=== PATIENT | female | born 2000 | race African-American/Black ===

== ENCOUNTER 2021-02-02 06:31 | Inpatient (IN) | payer OTHER ==
[2021-02-02 07:41] VITALS: BMI 28.3
[2021-02-02] MEDS ORDERED: morphine SULFATE/PF 0.5 MG/ML (2cc Syringe - QUVA) ONE (07:57)
[2021-02-02] MEDS ORDERED: PHENYLEPHRINE HCL 10 MG/1 ML SINGLE DOSE VIAL ONE (07:57)
[2021-02-02] MEDS ORDERED: ONDANSETRON 4 MG/2 ML VIAL IVPUSH PRN (08:01)
[2021-02-02] MEDS ORDERED: OXYTOCIN 20 UNITS in 0.9% NS 20 UNIT/1,000 ML INFUS.BAG IV ONE ×2 (08:01→10:32)
[2021-02-02] MEDS ORDERED: CITRIC ACID/SODIUM CITRATE 30 ML UNIT-DOSE CUP PO ONE (08:24)
[2021-02-02] MEDS ORDERED: ELECTROLYTE-148 SOLN 500 ML IV ONE (08:25)
[2021-02-02] MEDS ORDERED: ceFAZolin SODIUM 1 GM VIAL ONE (08:26)
[2021-02-02] MEDS ORDERED: ELECTROLYTE-148 SOLN 1,000 ML IV SCH (08:30)
[2021-02-02 08:39] LABS: URINE AMPHETAMINES NEGATIVE (NEGATIVE); URINE BARBITURATES NEGATIVE (NEGATIVE)
[2021-02-02 08:40] LABS: COCAINE, UR NEGATIVE (NEGATIVE); METHADONE, UR NEGATIVE (NEGATIVE); OPIATES, URI NEGATIVE (NEGATIVE); PHENCYCLIDINE,URINE NEGATIVE (NEGATIVE); URINE BENZODIAZEPINES NEGATIVE (NEGATIVE)
[2021-02-02] MEDS ORDERED: OXYTOCIN 10 UNITS/ML VIAL ONE (09:17)
[2021-02-02] MEDS ORDERED: METHYLERGONOVINE MALEATE 0.2 MG/1 ML AMP IM PRN (09:22)
[2021-02-02] MEDS ORDERED: SENNOSIDES/DOCUSATE COMBO (SENNA PLUS) TABLET (UD) PO PRN (09:22)
[2021-02-02] MEDS ORDERED: oxyCODONE HCL 5 MG TABLET PO PRN (09:22)
[2021-02-02] MEDS ORDERED: OXYTOCIN 20 UNITS in 0.9% NS 20 UNIT/1,000 ML INFUS.BAG IV SCH (09:30)
[2021-02-02] MEDS: FERROUS SO4 325 MG TABLET (FP) PO SCH ×2 (10:45→22:31)
[2021-02-02] MEDS: PRENATAL VITAMINS W/ FOLIC ACID TABLET (FP) PO SCH (10:46)
[2021-02-02] MEDS ORDERED: diphenhydrAMINE HCL 25 MG CAPSULE (FP) PO PRN (10:57)
[2021-02-02] MEDS: LORATADINE 10 MG TABLET PO SCH (12:53)
[2021-02-02] MEDS: IBUPROFEN 800 MG/8 ML IJ IVPB PRN (16:55)
[2021-02-03] MEDS: IBUPROFEN 800 MG/8 ML IJ IVPB PRN (01:26)
[2021-02-03 07:35] LABS: BASO % 0.4 % (0-2.0); EOS % 1.2 % (0-4.5); HEMATOCRIT 30.2 % (32.4-45.2); HEMOGLOBIN 10.3 GM/dL (10.7-15.3); LYMPH % 6.5 % (8-40); MCH 30.7 pg (25.7-33.7); MEAN CELL VOLUME 90.5 fl (80-96); MEAN PLT VOLUME 8.7 fl (7.5-11.1); MONO % 8.1 % (3.8-10.2); NEUT % 83.8 % (42.8-82.8); PLATELET COUNT 191 10^3/uL (134-434); RBC 3.34 M/mm3 (3.60-5.2); RDW 14.7 % (11.6-15.6); WHITE BLOOD COUNT 13.3 K/mm3 (4.0-10.0)
[2021-02-03] MEDS: IBUPROFEN 600 MG TABLET (FP) PO PRN ×3 (08:18→23:28)
[2021-02-03] MEDS: ACETAMINOPHEN 325 MG TABLET (FP) PO PRN ×3 (08:18→23:27)
[2021-02-03] MEDS: SIMETHICONE 80 MG TAB.CHEW (FP) PO PRN ×3 (08:18→23:29)
[2021-02-03] MEDS: PRENATAL VITAMINS W/ FOLIC ACID TABLET (FP) PO SCH (09:14)
[2021-02-03] MEDS: FERROUS SO4 325 MG TABLET (FP) PO SCH ×2 (09:14→22:49)
[2021-02-03] MEDS: LORATADINE 10 MG TABLET PO SCH (09:17)
[2021-02-03] MEDS ORDERED: BISACODYL 10 MG SUPP.RECT RC PRN (09:22)
[2021-02-04] MEDS: SIMETHICONE 80 MG TAB.CHEW (FP) PO PRN (09:11)
[2021-02-04] MEDS: FERROUS SO4 325 MG TABLET (FP) PO SCH (09:11)
[2021-02-04] MEDS: IBUPROFEN 600 MG TABLET (FP) PO PRN (09:11)
[2021-02-04] MEDS: PRENATAL VITAMINS W/ FOLIC ACID TABLET (FP) PO SCH (09:11)
[2021-02-04] MEDS: ACETAMINOPHEN 325 MG TABLET (FP) PO PRN (09:11)
[2021-02-04] MEDS: LORATADINE 10 MG TABLET PO SCH (10:30)
[2021-02-04 11:18] VITALS: BP 128/81; PULSE 97; TEMP 98
== END 2021-02-04 11:25 | disposition home or self-care (01) | DRG 540 ==
LOC: JLDR 06:31 → J3W 11:00
PROVIDERS: ADMIT Obstetrics & Gynecology; ATTEND Obstetrics & Gynecology
PROC: 10D00Z1 Extraction of Products of Conception, Low, Open Approach (ICD-10-PCS; principal; 2021-02-02)
DX: O34.211 Maternal care for low transverse scar from previous cesarean delivery (principal); Z3A.39 39 weeks gestation of pregnancy; Z37.0 Single live birth
CPT/HCPCS: 36415; 80307; 85025; 88307-TC